=== PATIENT | male | born 1965 | race Caucasian/White ===

== ENCOUNTER 2017-05-01 13:42 | Emergency (ER) | payer SELFPAY ==
[2017-05-01 13:49] VITALS: BP 144/78; BMI 28.3
[2017-05-01] MEDS ORDERED: XYLOCAINE 1 % (PLAIN) ONE (16:11)
--- NOTE | 2017-05-01 16:17 | DR.GENAD ---
HPI - PCP Primary Care Physician: GALO - Complaint/Symptoms Chief Complaint Doctors Comments: Patient states he has had a nodule on his left buttock for the past two days gettting worst today with severe pain when he move or walk. States he has had fever and chills yesterday with the pain being 10 of 10. He denies diarrhea, vomiting, constipation or diarrhea. states he contacted Dr. Marques and he gave him a prescription for antibiotics and he has been taking it without improvement. States he has had several before with most requiring lancing. Chief Complaint:: PT C/O BUMP ON LT BUTT CHEECK. PT STATES HE NOTICED IT CAME UP YESTERDAY. PT STATES HE IS IN SEVERE PAIN AND HAS BEEN ON ANTIBIOTICS FOR THE PAST 2 DAYS. - Nurses notes reviewed Nurses Notes Review: Yes - Source History Provided: Patient - Mode of Arrival Mode of Arrival: Ambulatory - Timing Onset of Chief Complaint: 04/29/17 Came on: Gradually - Duration Duration: Constant How lon Duration: Days - Location Location: left buttock - Modifying Factors Worsens:: walking and movement Improves:: nothing PMH - PMH Past Medical History: Yes Past Medical History: Diabetes, Hypertension Past Surgical History: No - Family History History of Family Medical Conditions: No - Social History Does patient currently use any type of tobacco product: Yes Have you used tobacco products in the last 12 months: Yes Type of Tobacco Use: Cigarettes Does any household member use tobacco: Yes Alcohol Use: None Do you use any recreational Drugs:: No Lives With: Family Lives Where: Home - infectious screening In the last 2 months have you had wt loss of >10#?: NO Have you had fever, night sweats or hemotysis?: No Have you traveled outside the country in the last 6 months?: No Isolation: Standard ROS - Review of Systems Constitutional: No Symptoms Reported. negative: See HPI, Chills, Diaphoresis, Fever, Malaise, Weakness, Irritable, Fatigue, Loss of Appetite, Other Eyes: No Symptoms Reported. negative: See HPI, Eye Pain, Blurred Vision, Tearing, Discharge, Photophobia, Diplopia, Other ENTM: No Symptoms Reported. negative: See HPI, Ear Pain, Ear Discharge, Pulling on Ears, Hearing Loss, Nose Pain, Nose Discharge, Epistaxis, Nose Congestion, Mouth Pain, Mouth Swelling, Loose Teeth, Drooling, Throat Pain, Throat Swelling, Ear Foreign Body Respiratoy: No Symptoms Reported Cardiovascular: No Symptoms Reported Gastrointestinal/Abdominal: No Symptoms Reported. negative: See HPI, Abdominal Pain, Constipation, Diarrhea, Nausea, Vomiting, Food Intolerance, Other Genitourinary: No Symptoms Reported. negative: See HPI, Discharge, Dysuria, Frequency, Hematuria, Pain, Bleeding, Other Neurological: No Symptoms Reported Musculoskeletal: No Symptoms Reported Integumentary: No Symptoms Reported, Lesions (6 cm lesion left buttock with erythema) Hematologic/Lymphatic: No Symptoms Reported. negative: See HPI, Anemia, Blood Clots, Easy Bleeding, Easy Bruising, Swollen Glands, Lymphadenopathy, Other Endocrine: No Symptoms Reported Psychiatric: No Symptoms Reported. negative: See HPI, Anxiety, Depression, Hallucinations, Excessive crying, Suicidal, Other PE - Vital Signs Vitals: Temperature 98.9 F Pulse Rate 105 Respiratory Rate 20 Blood Pressure 144/78 O2 Sat by Pulse Oximetry 97 - General Limitations: No Limitations General Appearance: Alert, In No Apparent Distress, In Distress (moderate) - Head Head Exam: Normal Inspection, Atraumatic, Normocephalic - Eyes Eye exam: Normal Appearance, PERRL, EOMI. negative: Scleral Icterus, Conjunctival Injection, Nystagmus, Miosis, Mydrasis, Periorbital Swelling, Periorbital Tenderness, Other - ENT ENT Exam: Normal Exam, Normal Oropharynx, Normal External Ear Exam, Mucous Membranes Moist, TM's Normal Bilaterally External Ear Exam: Normal External Inspection TM/Canal Exam: Bilateral Normal Nose Exam: Normal Nose Exam Mouth Exam: Normal Inspection Throat Exam: Normal Inspection - Neck Neck Exam: Normal Inspection, Full ROM, Trachea Midline - Chest Chest Inspection: Normal Inspection, Symmetric Chest Wall Rise - Respiratory Respiratory Exam: Normal Lung Sounds Bilat Respiratory Exam: Lower Clear to Auscultation - Cardiovascular Cardiovascular Exam: Regular Rate, Normal Rhythm, Normal Heart Sounds. negative : Bradycardia, Tachycardia, Irregular Rhythm, Systolic Murmur, Diastolic Murmur , Rubs, Gallop, Clicks, JVD, +S1, +S2, +S3, +S4, Other - Abdominal Exam Abdominal Exam: Normal Inspection, Normal Bowel Sounds, Soft Abdominal Tenderness: negative: RUQ, RLQ, LUQ, LLQ, Epigastrium, Suprapubic, Diffuse, Mild, Moderate, Severe, Other - Extremities Extremities Exam: Normal Inspection, Full ROM, Normal Capillary Refill. negative: Tenderness, Edema, Joint Swelling, Calf Tenderness, Other - Back Back Exam: Normal Inspection, Full ROM, Tenderness. negative: (R) CVA Tenderness, (L) CVA Tenderness, Muscle Spasm, Paraspinal Tenderness, Vertebral Tenderness, Rashes, (R) Sciatic Notch Tenderness, (L) Sciatic Notch Tendern, (R ) Straight Leg Raise, (L) Straight Leg Raise, Other - Neurologic Neurological Exam: Alert, Oriented X3, CN II-XII Intact, Normal Gait, Reflexes Normal - Psychiatric Psychiatric Exam: Normal Affect, Normal Mood. negative: Depressed, Agitated, Anxious, Flat Affect, Manic, Homicidal Ideation, Suicidal Ideation, Other - Skin Skin Exam: Warm, Dry, Intact, Normal Color, Erythema (right buttock with large lesion with erythema) Procedures - Procedure Comments Procedures: Skin prepped with betadine solution and skin infiltrated with 1% Lidocaine an incision made with #11 blade with release of copious purulent greenish yellow discharge. Wound explored and irrigated then packed loosely with iodoform gauze. Patient tolerated procedure well. Complications: None. EBL 5 ml. - Incision and Drainage Site: left buttock Blade Size: 11 I & D Procedure: betadine prep, sterile drapes applied, sterile dressing applied , gauze wick placed - Diagnosis Discharge Problem: Abscess, gluteal, left, Cellulitis and abscess of buttock - Discharge Plan Disposition: HOME, SELF-CARE Condition: Stable Prescriptions: Acetaminophen/Codeine Tab [TYLENOL w/CODEINE #3 (300 MG/30 MG) *] 1 tab PO Q4- 6H PRN #18 tab PRN Reason: Pain Cephalexin [KEFLEX CAP 500 MG *] 500 mg PO TID #30 cap - Follow ups/Referrals Follow ups/Referrals: Ean ROSENTHAL [Primary Care Provider] - 3 days - Instructions Instructions: Incision and Drainage, Care After, Cellulitis, Adult, Easy-to- Read, Abscess, [id number]
[2017-05-01] MEDS ORDERED: ROCEPHIN VIAL 1 GM IM ONE (16:44)
[2017-05-01] MEDS ORDERED: ROCEPHIN VIAL 1 GM ONE (16:51)
== END 2017-05-01 16:59 | disposition home or self-care (01) ==
LOC: ER 13:59
PROC: 0Y913ZZ Drainage of Left Buttock, Percutaneous Approach (ICD-10-PCS; principal; 2017-05-01)
DX: L03.317 Cellulitis of buttock (principal); L02.31 Cutaneous abscess of buttock
CPT/HCPCS: 10060; 87070; 87075; 87077; 87186; 87205; 96372; 99282; 99283; J0696; J2001